=== PATIENT | female | born 1930 | race Caucasian/White ===

== ENCOUNTER 2016-09-08 08:46 | Emergency (ER) | payer MEDICARE, BC ==
[~2016-09-08] VITALS: Ht 165.1 cm; Wt 47.3 kg
[~2016-09-08 08:46] MED LIST: AMOXICILLIN 8751 TAB PO; ANTIVERT 12.512.5 MG PO; ARIMIDEX1 MG PO; ASPIRIN 81M81 MG/TA2 PO; BACTRIM DS 8001 TAB PO; BENICAR; BENICAR HCT 12.1 TA1 PO; BYSTOLIC5 MG PO; CALTRATE-600 W600 MG PO; DOXYCYCLINE 10100 MG PO; E GEMS PO; ENALAPRIL; FLAGYL500 MG PO; FLEXERIL 1010 MG/TAB PO; LORTAB 5/500 501 TAB PO; MIRALAX PA17 GM/Dose PO; NAPROXEN 3375 MG/TAB PO; NORCO 325 MG-51 TAB PO; NORVASC 5MG5 MG/TAB PO; PREDNISONE 2.52.5 MG PO; PROBIOTIC FORMU1 CAP PO; TYLENOL 325MG325 MG PO; ULTRAM 50MG TAB50 MG PO; ZOFRAN ODT4 MG PO; no home medications
[2016-09-08 08:51] VITALS: BP 120/74
[2016-09-08] MEDS ORDERED: MIRALAX PA17 GM/Dose PO (08:58)
[2016-09-08 10:23] VITALS: PULSE 82; TEMP 97.1
== END 2016-09-08 10:19 | disposition home or self-care (01) ==
LOC: COL.ER 08:46
DX: S06.9X1A Unspecified intracranial injury with loss of consciousness of 30 minutes or less, initial encounter (principal); M54.2 Cervicalgia; S00.93XA Contusion of unspecified part of head, initial encounter; W01.0XXA Fall on same level from slipping, tripping and stumbling without subsequent striking against object, initial encounter; Y92.009 Unspecified place in unspecified non-institutional (private) residence as the place of occurrence of the external cause; R40.2362 Coma scale, best motor response, obeys commands, at arrival to emergency department; R40.2142 Coma scale, eyes open, spontaneous, at arrival to emergency department; R40.2252 Coma scale, best verbal response, oriented, at arrival to emergency department; I10 Essential (primary) hypertension

== ENCOUNTER → 2018-01-23 | Outpatient (CLI) | payer MEDICARE, BC ==
[~2018-01-23] MED LIST changes: +eye drops OD
== END ==
LOC: COL.VAS 10:14
DX: I83.811 Varicose veins of right lower extremity with pain (principal)

== ENCOUNTER 2018-05-04 08:24 | Inpatient (IN) | payer MEDICARE, BC ==
[2018-05-04] VITALS (213 sets, daily range): BP systolic 119–188; BP diastolic 71–79; PULSE 57–61; TEMP 97.2–97.4; O2SAT 88–99
[~2018-05-04] VITALS: Ht 170.2 cm; Wt 51.5 kg
[2018-05-04 09:21] LABS: BASO # 0.1 (0.0-0.2); EOS # 0.1 (0.0-0.7); GRAN # 4.5 (1.4-6.5); GRAN % 65.3 % (42.2-75.2); HEMATOCRIT 41.3 % (37.0-47.0); HEMOGLOBIN 13.2 g/dl (12.5-16.0); LYMPH # 1.7 (1.2-3.4); LYMPH % 24.2 % (20.0-51.0); MEAN CELL VOLUME 95 fl (80.0-100.0); MEAN CORPUSCULAR HEMOGLOBIN 30 pg (27.0-31.0); MEAN CORPUSCULAR HGB CONC 32 g/dl (33.0-37.0); MONO # 0.5 (0.1-0.6); MONO % 7.2 % (1.7-9.3); PLATELET COUNT 224 K/mm3 (130-400); RED BLOOD COUNT 4.34 M/mm3 (4.10-5.30); REDCELL DISTRIBUTION WIDTH-CV 12.7 % (11.5-14.5)
[2018-05-04 09:34] LABS: ALANINE AMINOTRANSFERASE 49 U/L (9-52); ALBUMIN 3.7 gm/dL (3.5-5.0); ALKALINE PHOSPHATASE 52 U/L (50-136); ANION GAP 5 mmol/L (7-16); AST,SGOT 32 U/L (15-37); BILIRUBIN,TOTAL 0.4 mg/dL (0.0-1.0); BLOOD UREA NITROGEN 26 mg/dL (7-17); CALCIUM 9.2 mg/dL (8.4-10.2); CARBON DIOXIDE 28 mmol/L (22-30); CHLORIDE 112 mmol/L (98-107); CREATININE, serum 0.89 mg/dL (0.52-1.25); GLUCOSE 103 mg/dL (74-106); POTASSIUM 3.7 mmol/L (3.4-5.0); SODIUM 144 mmol/L (137-145); TOTAL PROTEIN 6.7 gm/dL (6.4-8.2)
[2018-05-04 09:50] LABS: TROPONIN-I < 0.012 ng/mL (0.000-0.034)
[2018-05-04 10:09] LABS: C-REACTIVE PROTEIN < 0.5 mg/dL (0.0-0.9)
[2018-05-04 11:02] LABS: COLLECTION METHOD CLEAN CATCH
[2018-05-04 11:07] LABS: PH 7 (5-8); SQUAMOUS EPITHELIAL 0-2 /hpf; URINE APPEARANCE Clear; URINE BACTERIA None Seen /hpf; URINE BILIRUBIN Negative (NEGATIVE); URINE BLOOD Negative (NEGATIVE); URINE COLOR Colorless; URINE GLUCOSE Negative (NEGATIVE); URINE KETONE Negative (NEGATIVE); URINE LEUKOCYTE ESTERASE Negative (NEGATIVE); URINE NITRATE Negative (NEGATIVE); URINE PROTEIN(semi-quant) Negative (NEGATIVE); URINE RBC 0-2 /hpf; URINE UROBILINOGEN Negative (NEGATIVE); URINE WBC 0-2 /hpf
[2018-05-05] VITALS (477 sets, daily range): BP systolic 129–175; BP diastolic 54–102; PULSE 52–100; TEMP 97.2–98.2; O2SAT 83–100
[2018-05-05 06:30] LABS: BASO # 0.1 (0.0-0.2); BASO % 1.4 % (0.0-2.0); EOS # 0.2 (0.0-0.7); EOS % 3.5 % (0-4.0); GRAN # 3.3 (1.4-6.5); GRAN % 57.6 % (42.2-75.2); HEMATOCRIT 41.6 % (37.0-47.0); HEMOGLOBIN 13.2 g/dl (12.5-16.0); LYMPH # 1.7 (1.2-3.4); LYMPH % 30.3 % (20.0-51.0); MEAN CELL VOLUME 94 fl (80.0-100.0); MEAN CORPUSCULAR HEMOGLOBIN 30 pg (27.0-31.0); MEAN CORPUSCULAR HGB CONC 32 g/dl (33.0-37.0); MEAN PLATELET VOLUME 9.6 fl (7.4-10.4); MONO # 0.4 (0.1-0.6); PLATELET COUNT 238 K/mm3 (130-400); RED BLOOD COUNT 4.42 M/mm3 (4.10-5.30); REDCELL DISTRIBUTION WIDTH-CV 12.6 % (11.5-14.5)
[2018-05-05 07:00] LABS: CALCIUM 8.5 mg/dL (8.4-10.2); CREATININE, serum 0.69 mg/dL (0.52-1.25); POTASSIUM 3.5 mmol/L (3.4-5.0)
[2018-05-05 07:07] LABS: TROPONIN-I 0.018 ng/mL (0.000-0.034)
[2018-05-06] VITALS: BP 139/65; PULSE 53; TEMP 97.4
[2018-05-06 04:00] VITALS: BP 150/59; PULSE 55; TEMP 97.2
[2018-05-06] MEDS ORDERED: PACERONE400 MG PO (10:58)
[2018-05-06] MEDS ORDERED: LIPITOR20 MG PO (10:58)
[2018-05-06] MEDS ORDERED: NITROSTAT0.4 MG/TAB SL (10:58)
[2018-05-06] MEDS ORDERED: ASPIRIN 32325 MG/TAB PO (10:59)
[2018-05-06] MEDS ORDERED: ZESTRIL 5MG5 MG PO (10:59)
== END 2018-05-06 12:04 | disposition home or self-care (01) | DRG 282 ==
LOC: COL.ER 08:24 → ICU 14:52
PROVIDERS: Emergency Medicine; Internal Medicine Cardiovascular Disease; Nurse Practitioner Primary Care
DX: I21.4 Non-ST elevation (NSTEMI) myocardial infarction (principal); I48.0 Paroxysmal atrial fibrillation; J44.9 Chronic obstructive pulmonary disease, unspecified; Z85.3 Personal history of malignant neoplasm of breast; Z87.891 Personal history of nicotine dependence; R41.0 Disorientation, unspecified; R45.1 Restlessness and agitation
CPT/HCPCS: 99239; J1630; J1644; J2060; J3010; J7030; Q9967